=== PATIENT | female | born 1935 | race Caucasian/White ===

== ENCOUNTER 2017-04-08 06:10 | Day surgery (SDC) | payer OTHER, MEDICARE ==
[2017-04-06 16:08] VITALS: BMI 26.9
[~2017-04-08 06:10] MED LIST: BUPIVACAINE HCL/PF (5 MG/ML) 30 ML VIAL IJ ONE; DESMOPRESSIN ACETATE IVPB ONE; IOHEXOL 180 MG/1 ML ML IJ ONE; LIDOCAINE HCL 1%, 10 MG/ML (20ML VIAL) IJ ONE; SODIUM CHLORIDE IVPB ONE; TRIAMCINOLONE ACET 40MG/1ML VIAL IM ONE
[2017-04-08] MEDS ORDERED: DESMOPRESSIN ACETATE 4 MCG/ML AMP IVPB ONE (06:45)
[2017-04-08] MEDS ORDERED: TRIAMCINOLONE ACET 40MG/1ML VIAL ONE (07:20)
[2017-04-08] MEDS ORDERED: BUPIVACAINE HCL/PF 0.5% (5MG/ML) 10 ML VIAL ONE (07:20)
[2017-04-08] MEDS ORDERED: LIDOCAINE HCL 1%, 10 MG/ML (20ML VIAL) ONE (07:20)
[2017-04-08] MEDS ORDERED: LIDOCAINE HCL 2% (20ML MULTI-DOSE VIAL) NR ONE (07:39)
[2017-04-08] MEDS ORDERED: PROPOFOL 20 ML ONE ×2 (07:39→07:40)
[2017-04-08] MEDS ORDERED: MIDAZOLAM HCL 2 MG/2 ML SINGLE DOSE VIAL ONE (07:49)
[2017-04-08] MEDS ORDERED: methylPREDNISolone ACET (DEPO) 80 MG/1 ML VIAL ONE (07:57)
[2017-04-08] MEDS ORDERED: LIDOCAINE HCL 1%, 10 MG/ML (20ML VIAL) IJ ONE ×2 (07:59)
[2017-04-08] MEDS ORDERED: BUPIVACAINE HCL/PF (5 MG/ML) 30 ML VIAL IJ ONE ×2 (08:00)
[2017-04-08] MEDS ORDERED: IOHEXOL 180 MG/1 ML ML IJ ONE (08:01)
[2017-04-08] MEDS ORDERED: TRIAMCINOLONE ACET 40MG/1ML VIAL IM ONE (08:03)
[2017-04-08] MEDS ORDERED: methylPREDNISolone ACET (DEPO) 80 MG/1 ML VIAL IJ ONE (08:04)
[2017-04-08 08:45] VITALS: TEMP 97.5
[2017-04-08] MEDS ORDERED: ACETAMINOPHEN 325 MG TABLET (FP) PO PRN (09:00)
[2017-04-08] MEDS ORDERED: ONDANSETRON 4 MG/2 ML VIAL IVPUSH PRN (09:00)
[2017-04-08] MEDS ORDERED: LACTATED RINGERS SOLUTION 1,000 ML IV SCH (09:00)
[2017-04-08 11:01] VITALS: BP 115/44; PULSE 70
--- NOTE | 2017-04-08 14:15 | OP ---
DATE OF OPERATION: 04/08/2017 PREOPERATIVE DIAGNOSIS: L4-5 spinal stenosis with back pain and lumbar radiculopathy. POSTOPERATIVE DIAGNOSIS: L4-5 spinal stenosis with back pain and lumbar radiculopathy. ATTENDING SURGEON: Bhargav Diggs MD PROCEDURE: 1. Right L4-5 epidural steroid injection. 2. Intraoperative fluoroscopy. 3. Epidurogram with 3 mL of Omnipaque 180. INDICATION: The patient is an 81-year-old female with back pain, lumbar radiculopathy causing intractable symptoms, failed conservative treatment. She is consented for lumbar epidural steroid injection. She does have possible von Willebrand disease and was given DDAVP per the recommendation of her primary care physician. The risks of the procedure include but are not limited to bleeding, infection, spinal headache, and neurological injury. The patient understands the indications for the procedure, the procedure in detail, risks and benefits, and alternative treatments for her lumbar condition and wished to proceed. No guarantees were given for a favorable outcome. PROCEDURE IN DETAIL: After the patient was taken to the operating room, she was placed in prone position with a pillow under her hips. Next, 5 mL 1% Xylocaine was given as local anesthetic. A 22-gauge spinal needle was inserted under AP fluoroscopic guidance from a right-hand side approach to the interlaminar space at L4-5 on the right. There was no CSF of blood backflow. Omnipaque 180, 3 mL was given and the needle position was confirmed. Depo-Medrol 80 mg and 1 mL of 0.25% Marcaine were injected and needle was withdrawn. Sterile bandage was applied. The patient tolerated the procedure well and turned back to supine position, moving bilateral upper and lower extremities well. She did not complain of holding area. There was no excessive bleeding at any point in time. The patient will be observed in the [facility]. BHARGAV DIGGS M.D. [id number]
== END 2017-04-08 10:55 | disposition home or self-care (01) ==
LOC: JASU-SURG 06:10
PROVIDERS: ATTEND Neurological Surgery
PROC: 3E0S3BZ Introduction of Anesthetic Agent into Epidural Space, Percutaneous Approach (ICD-10-PCS; 2017-04-08)
PROC: 3E0S33Z Introduction of Anti-inflammatory into Epidural Space, Percutaneous Approach (ICD-10-PCS; 2017-04-08)
PROC: B01BYZZ Fluoroscopy of Spinal Cord using Other Contrast (ICD-10-PCS; 2017-04-08)
PROC: B01BZZZ Fluoroscopy of Spinal Cord (ICD-10-PCS; 2017-04-08)
PROC: 3E013GC Introduction of Other Therapeutic Substance into Subcutaneous Tissue, Percutaneous Approach (ICD-10-PCS; principal; 2017-04-08 07:30)
DX: M48.06 Spinal stenosis, lumbar region (principal); M54.16 Radiculopathy, lumbar region; M54.9 Dorsalgia, unspecified; D68.0 Von Willebrand disease
CPT/HCPCS: 62323; 72275; 96372; J2597; 76000-TC